=== PATIENT | male | born 1980 | race Caucasian/White ===

== ENCOUNTER 2020-02-03 13:32 | Emergency (ER) | payer BC ==
--- NOTE | 2020-02-03 14:18 | EDM.PDOC ---
ED HPI GENERAL MEDICAL PROBLEM - General Chief Complaint: Skin Complaint Stated Complaint: ABSCESS Time Seen by Provider: 02/03/20 13:58 - History of Present Illness INITIAL COMMENTS - FREE TEXT/NARRATIVE: History of present illness: Patient presents the ED with an abscess in his right groin that is painful it is been there for a couple months as a small pea-sized lesion but then in the last 72 hours it is really expanded become inflamed and extremely painful he went immediately to his regular doctor who put him on antibiotics but did not incise and drain it it has subsequently gotten worse he also had a reaction to the Ba ctrim that he was put on where he had trouble breathing with throat swelling and some general weakness. He has been switched to Augmentin. This is not working either he denies any other complaints no other lesions no fever no chills nothing seems to make it better pressure and movement makes it worse Review of systems: As per history of present illness and below otherwise all systems reviewed and negative. Past medical history: As per history of present illness and as reviewed below otherwise noncontributory. Surgical history: As per history of present illness and as reviewed below otherwise noncontributory. Social history: No reported history of drug or alcohol abuse. Family history: As per history of present illness and as reviewed below otherwise noncontributory. Physical exam: HEENT: Atraumatic, normocephalic, pupils reactive, negative for conjunctival pallor or scleral icterus, mucous membranes moist, throat clear, neck supple, nontender, trachea midline. Lungs: Clear to auscultation, breath sounds equal bilaterally, chest nontender. Heart: S1S2, regular, negative for clicks, rubs, or JVD. Abdomen: Soft, nondistended, nontender. Negative for masses or hepatospleno megaly. Negative for costovertebral tenderness. Pelvis: Stable nontender. Genitourinary: Deferred. Rectal: Deferred. Extremities: Atraumatic, negative for cords or calf pain. Neurovascular unremarkable. There is an abscess in the right inguinal region with some surrounding cellulitis. Neuro: Awake, alert, oriented. Cranial nerves II through XII unremarkable. Cerebellum unremarkable. Motor and sensory unremarkable throughout. Exam nonfocal. Diagnostics: [] Therapeutics: [] Impression: [] Plan: Incise and drain the abscess antibiotics follow-up with primary care. [] Definitive disposition and diagnosis as appropriate pending reevaluation and review of above. right groin Pain Score (Numeric/FACES): 10 - Related Data Allergies Allergy/AdvReac Type Severity Reaction Status Date / Time Sulfa (Sulfonamide Allergy Airway Verified 02/03/20 14:08 Antibiotics) Tightness Home Meds: Home Meds Doxycycline [Vibra-Tabs] 100 mg PO BID #20 tablet 02/03/20 [Rx] Past Medical History Other Cardiovascular History: catheter ablasion cardiac Genitourinary History: Reports: Renal Calculus - Infectious Disease History Infectious Disease History: Reports: None Social & Family History - Family History Family Medical History: Noncontributory - Tobacco Use Smoking Status *Q: Current Status Unknown - Caffeine Use Caffeine Use: Reports: Coffee - Recreational Drug Use Recreational Drug Use: No ED ROS GENERAL - Review of Systems Review Of Systems: See Below ED EXAM, SKIN/RASH Exam: See Below Course - Vital Signs Text/Narrative:: Procedure: The abscess in the right inguinal region was anesthetized with 10 mils of lidocaine it was then incised with an 11 blade copious amounts of pus and fluid were expressed it was irrigated and left open patient tolerated the procedure well. Patient is supposedly on Augmentin I do not believe this will be adequate to cover for MRSA I will start him on doxycycline he is to follow-up with his primary care doctor return to the ED for further problems. Last Recorded V/S: Last Vital Signs Temp 36.3 C 02/03/20 14:09 Pulse 79 02/03/20 14:09 Resp 18 02/03/20 14:09 BP 140/92 H 02/03/20 14:09 Pulse Ox 98 02/03/20 14:09 - Orders/Labs/Meds Meds: Medications Discontinued Medications Generic Name Dose Route Start Last Admin Trade Name Freq PRN Reason Stop Dose Admin Lidocaine HCl 10 ml 02/03/20 13:58 Xylocaine-Mpf 1% INJECT 02/03/20 13:59 ONETIME ONE Departure - Departure Time of Disposition: 14:36 Disposition: Home, Self-Care 01 Condition: Good Clinical Impression: Abscess - Discharge Information *PRESCRIPTION DRUG MONITORING PROGRAM REVIEWED*: Not Applicable *COPY OF PRESCRIPTION DRUG MONITORING REPORT IN PATIENT GISSEL: Not Applicable Prescriptions: Doxycycline [Vibra-Tabs] 100 mg PO BID #20 tablet Instructions: Skin Abscess Referrals: Tess Stein MD [Primary Care Provider] - Forms: ED Department Discharge Additional Instructions: The following information is given to patients seen in the emergency department who are being discharged to home. This information is to outline your options for follow-up care. We provide all patients seen in our emergency department with a follow-up referral. The need for follow-up, as well as the timing and circumstances, are variable depending upon the specifics of your emergency department visit. If you don't have a primary care physician on staff, we will provide you with a referral. We always advise you to contact your personal physician following an emergency department visit to inform them of the circumstance of the visit and for follow-up with them and/or the need for any referrals to a consulting specialist. The emergency department will also refer you to a specialist when appropriate. This referral assures that you have the opportunity for follow-up care with a specialist. All of these measure are taken in an effort to provide you with optimal care, which includes your follow-up. Under all circumstances we always encourage you to contact your private physician who remains a resource for coordinating your care. When calling for follow-up care, please make the office aware that this follow-up is from your recent emergency room visit. If for any reason you are refused follow-up, please contact the [facility] Emergency Department at and asked to speak to the emergency department charge nurse. Sepsis Event Note (ED) - Evaluation Sepsis Screening Result: No Definite Risk - Focused Exam Vital Signs: Vital Signs Temp Pulse Resp BP Pulse Ox 02/03/20 14:09 36.3 C 79 18 140/92 H 98
== END 2020-02-03 15:17 | disposition home or self-care (01) ==
LOC: MW.ED 13:32
DX: L02.214 Cutaneous abscess of groin (principal); Z88.2 Allergy status to sulfonamides
CPT/HCPCS: 10060; 99282; J2001

== ENCOUNTER 2020-05-18 08:11 | Day surgery (SDC) | payer BC ==
[~2020-05-18 08:11] MED LIST: Clindamycin Phosphate in D5W 600 MG in Premix Bag 50 BAG IV SCH; Lactated Ringers 1,000 ML IV SCH
[2020-05-18] MEDS ORDERED: Lidocaine 2% 5 ML SDV ONE (09:19)
[2020-05-18] MEDS ORDERED: fentaNYL 250 MCG/5 ML SDV ONE (09:19)
[2020-05-18] MEDS ORDERED: Ondansetron 4 MG/2 ML SDV ONE (09:19)
[2020-05-18] MEDS ORDERED: Midazolam 1 MG/ML 2 ML SDV ONE (09:19)
[2020-05-18] MEDS ORDERED: Propofol 200 MG/20 ML SDV ONE (09:19)
--- NOTE | 2020-05-18 09:56 | PCM.PREANE ---
Preanesthetic Assessment - Anesthesia/Transfusion/Family Hx Anesthesia History: Prior Anesthesia Without Reaction Family History of Anesthesia Reaction: No Transfusion History: No Prior Transfusion(s) Intubation History: Unknown - Review of Systems General: No Symptoms Pulmonary: No Symptoms Cardiovascular: No Symptoms Gastrointestinal: No Symptoms Neurological: No Symptoms Other: Reports: None - Physical Assessment Vital Signs: Last Vital Signs Temp 36.2 C 05/18/20 08:25 Pulse 68 05/18/20 08:25 Resp 16 05/18/20 08:25 BP 131/87 05/18/20 08:25 Pulse Ox 97 05/18/20 08:25 Height: 5 ft 7 in Weight: 81.647 kg ASA Class: 2 Mental Status: Alert & Oriented x3 Airway Class: Mallampati = 2 Dentition: Reports: Normal Dentition Thyro-Mental Finger Breadths: 3 Mouth Opening Finger Breadths: 3 ROM/Head Extension: Full Lungs: Clear to Auscultation, Normal Respiratory Effort Cardiovascular: Regular Rate, Regular Rhythm - Allergies Allergies/Adverse Reactions: Allergies Allergy/AdvReac Type Severity Reaction Status Date / Time Iodine and Iodide Containing Allergy Hives Verified 05/18/20 08:30 Produc Sulfa (Sulfonamide Allergy Airway Verified 05/18/20 08:30 Antibiotics) Tightness sulfamethoxazole Allergy Airway Verified 05/18/20 08:30 [From Bactrim] Tightness trimethoprim [From Bactrim] Allergy Airway Verified 05/18/20 08:30 Tightness - Blood Blood Available: No - Anesthesia Plan Pre-Op Medication Ordered: None - Acknowledgements Anesthesia Type Planned: General Anesthesia Pt an Appropriate Candidate for the Planned Anesthesia: Yes Alternatives and Risks of Anesthesia Discussed w Pt/Guardian: Yes Pt/Guardian Understands and Agrees with Anesthesia Plan: Yes PreAnesthesia Questionnaire Cardiovascular History: Reports: Arrhythmia Other Cardiovascular History: catheter ablasion in - no problems since Genitourinary History: Reports: Renal Calculus Other Genitourinary History: has passes 11 stones Dermatologic History: Reports: Eczema - Infectious Disease History Infectious Disease History: Reports: Other (See Below) (rt. inguinal recurrent hydradenitis) - Past Surgical History Head Surgeries/Procedures: Reports: None Cardiovascular Surgical History: Reports: Cardiac Ablation Other Cardiovascular Surgeries/Procedures: had ablation for "alternate pathway", no palpitations since Male Surgical History: Reports: Kidney Stone Extraction, Vasectomy Other Male Surgeries/Procedures: one time - SUBSTANCE USE Tobacco Use Status *Q: Former Tobacco User Tobacco Use Within Last Twelve Months: Cigarettes Recreational Drug Use History: No - HOME MEDS Home Medications: Home Meds Cholecalciferol (Vitamin D3) [Vitamin D3] 1,000 unit PO DAILY 05/14/20 [History] Clindamycin HCl 300 mg PO TID 05/14/20 [History] - CURRENT (IN HOUSE) MEDS Current Meds: Current Medications Lactated Ringer's (Ringers, Lactated) 1,000 mls @ 125 mls/hr IV ASDIRECTED [facility] Last Admin: 05/18/20 08:31 Dose: 125 mls/hr Documented by: Clindamycin Phosphate 600 mg/ (Premix) 50 mls @ 100 mls/hr IV ONETIME [facility] Stop: 05/18/20 11:00 Last Admin: 05/18/20 09:40 Dose: 100 mls/hr Documented by: Discontinued Medications Fentanyl (Sublimaze) Confirm Administered Dose 250 mcg .ROUTE .STK-MED ONE Stop: 05/18/20 09:20 Lidocaine (Xylocaine-Mpf 2%) Confirm Administered Dose 5 ml .ROUTE .STK-MED ONE Stop: 05/18/20 09:20 Midazolam HCl (Versed 1 Mg/Ml) Confirm Administered Dose 2 mg .ROUTE .STK-MED ONE Stop: 05/18/20 09:20 Ondansetron HCl (Zofran) Confirm Administered Dose 4 mg .ROUTE .STK-MED ONE Stop: 05/18/20 09:20 Propofol (Diprivan 20 Ml) Confirm Administered Dose 200 mg .ROUTE .STK-MED ONE Stop: 05/18/20 09:20
[2020-05-18] MEDS ORDERED: Lidocaine 1% with EPINEPHrine 1:100,000 20 ML MDV ONE (10:04)
[2020-05-18] MEDS ORDERED: Bupivacaine 25%/EPINEPHrine/PF 0 ML ONE (10:04)
--- NOTE | 2020-05-18 10:58 | PCM.OPNOTE ---
- General Post-Op/Procedure Note Date of Surgery/Procedure: 05/18/20 Operative Procedure(s): excisional bx recurrent infected hidradenitis, R inguinal Findings: 6 X 4 cm skin removed, right at the crease between upper R thigh and scrotum [id number] Pre Op Diagnosis: recurrent infected r inguinal hidradenitis Post-Op Diagnosis: Same Anesthesia Technique: General LMA Primary Surgeon: Dilan Costa Pathology: sent Complications: None Condition: Good
--- NOTE | 2020-05-18 11:31 | PCM.POSTAN ---
POST ANESTHESIA ASSESSMENT - MENTAL STATUS Mental Status: Alert, Oriented - VITAL SIGNS Vital Signs: Last Vital Signs Temp 36.4 C 05/18/20 10:49 Pulse 58 L 05/18/20 11:24 Resp 11 L 05/18/20 11:24 BP 112/80 05/18/20 11:24 Pulse Ox 94 L 05/18/20 11:24 - RESPIRATORY Respiratory Status: Respiratory Rate WNL, Airway Patent, O2 Saturation Stable - CARDIOVASCULAR CV Status: Pulse Rate WNL, Blood Pressure Stable - GASTROINTESTINAL GI Status: No Symptoms - PAIN Pain Score: 0 - POST OP HYDRATION Hydration Status: Adequate & Stable - OBSERVATIONS Free Text/Narrative:: No anesthesia problems
[2020-05-18] MEDS ORDERED: Acetaminophen/oxyCODONE 325-5 MG Tab PO PRN (12:04)
--- NOTE | 2020-05-18 12:07 | PCM48HPAN ---
Post Anesthesia Note - EVALUATION WITHIN 48HRS OF ANESTHETIC Vital Signs in Normal Range: Yes Patient Participated in Evaluation: Yes Respiratory Function Stable: Yes Airway Patent: Yes Cardiovascular Function Stable: Yes Hydration Status Stable: Yes Pain Control Satisfactory: Yes Nausea and Vomiting Control Satisfactory: Yes Mental Status Recovered: Yes Vital Signs: Last Vital Signs Temp 36.2 C 05/18/20 11:25 Pulse 68 05/18/20 11:40 Resp 14 05/18/20 11:40 BP 109/76 05/18/20 11:40 Pulse Ox 96 05/18/20 11:40 - COMMENTS/OBSERVATIONS Free Text/Narrative:: No anesthesia problems
[2020-05-18] MEDS ORDERED: Acetaminophen/oxyCODONE 325-5 MG Tab ONE (12:09)
--- NOTE | 2020-05-18 13:18 | OR ---
SURGEON: Dilan Costa MD DATE OF PROCEDURE: 05/18/2020 PREOPERATIVE DIAGNOSIS: Recurrent infected hidradenitis on the right inguinal. POSTOPERATIVE DIAGNOSIS: Recurrent infected hidradenitis on the right inguinal. PROCEDURE PERFORMED: Excisional biopsy of above. PRIMARY SURGEON: Dilan Costa MD COMPLICATIONS: None. FINDINGS: A piece of 6 x 4 cm skin was removed and wound was loosely closed with three stitches. DESCRIPTION OF PROCEDURE: The patient was taken to the operating room and placed in a supine position. Upon induction of LMA, the patient's right groin was prepped and draped in a sterile fashion and the infected skin is right at the crease between the upper right thigh and the scrotum and about 6 x 4 cm skin was removed and very superficial to the skin. Hemostasis achieved by using electrocautery. The wound was then irrigated and loosely closed with three stitches of 3-0 Ethilon and followed with appropriate dressing. The patient was transferred to Recovery in hemodynamically stable condition. The patient tolerated the procedure well. There were no intraoperative complications. Dr. Costa was present through whole procedure. QUINTEN / CLIFF /[id number] SADIA
== END 2020-05-18 12:56 | disposition home or self-care (01) ==
LOC: MW.SDS 08:11
PROVIDERS: ATTEND Surgery
DX: L73.2 Hidradenitis suppurativa (principal); L90.5 Scar conditions and fibrosis of skin; Z88.1 Allergy status to other antibiotic agents; Z88.2 Allergy status to sulfonamides; Z79.899 Other long term (current) drug therapy; Z98.890 Other specified postprocedural states; Z88.8 Allergy status to other drugs, medicaments and biological substances; Z87.891 Personal history of nicotine dependence
CPT/HCPCS: 11462; A9270; J2001; J2250; J2405; J2704; J3010; J3490; J7120